=== PATIENT | male | born 1980 | race African-American/Black ===

== ENCOUNTER 2018-11-27 12:14 | Emergency (ER) | payer MEDICAID ==
[~2018-11-27] VITALS: Ht 175.3 cm; Wt 86.2 kg
[~2018-11-27 12:14] MED LIST: CITA10TA11 PO
--- NOTE | 2018-11-27 12:40 | NUR ---
PT CALLED BACK FOR TRIAGE. PT USING SWEAR WORDS AND YELLING AND SCREAMING. PT LEFT IN LOBBY AND SECURITY CALLED.
--- NOTE | 2018-11-27 12:45 | NUR ---
SECURITY IN LOBBY TO ESCORT PT TO BED 4 FOR TRIAGE AND PT CONTINUES TO YELL AND USE SWEAR WORDS, STATING HE DOES NOT WANT TO BE HERE, WHY DID THEY BRING HIM HERE, GET HIM THE FUCK OUT OF HERE. SECURITY ESCORTED PT BACK OUT TO LOBBY AND OUTSIDE.
--- NOTE | 2018-11-27 12:47 | NUR ---
PATIENT LEFT WITHOUT BEING SEEN BY DR. TOBAR. NO FURTHER CARE PROVIDED FOR PATIENT.
[2018-11-27 13:10] VITALS: BP 97/58
--- NOTE | 2018-11-27 13:10 | NUR ---
PATIENT NOW EXPRESSING WISH TO BE SEEN BY MD. TRIAGED AT THIS TIME, VSS.
--- NOTE | 2018-11-27 13:15 | NUR ---
PATIENT NOW YELLING AT ADMITTING STAFF, CONTACTING [facility] AT THIS TIME.
--- NOTE | 2018-11-27 13:27 | NUR ---
TRINIDAD CASTILLO NOW ARRIVED. IN LOBBY SPEAKING TO PATIENT.
--- NOTE | 2018-11-27 13:58 | NUR ---
PT AMBULATED TO ER BED 07
--- NOTE | 2018-11-27 14:50 | NUR ---
PT C/O L SHOULDER PAIN, PT REFUSES TO DISCLOSE INFORMATION HOW EVENT HAPPENED. PT STATES PAIN IS 7/10 AT THIS TIME. UNABLE TO OBTAINED PAST MEDICAL HX; PT IS A POOR HISTORIAN. NOTED VERY SLEEPY. VSS.
[2018-11-27 15:51] LABS: BASOPHILS % (AUTO) 0.6 % (0.0-2.0); EOSINOPHILS # (AUTO) 0.2 K/uL (0-0.4); EOSINOPHILS % (AUTO) 4.2 % (0.0-4.0); HEMATOCRIT 38.5 % (36-52); HEMOGLOBIN 13.1 g/dL (12.0-18.0); LYMPHOCYTES # (AUTO) 1.6 K/uL (2.0-11.5); LYMPHOCYTES % (AUTO) 33.1 % (20.5-51.1); MEAN CORPUSCULAR HEMOGLOBIN 34 pg (27-31); MEAN CORPUSCULAR HGB CONC 34 g/dL (33-37); MEAN CORPUSCULAR VOLUME 98.8 fL (80-94); MONOCYTES # (AUTO) 0.7 K/uL (0.8-1.0); MONOCYTES % (AUTO) 13.4 % (1.7-9.3); NEUTROPHILS # (AUTO) 2.4 K/uL (1.8-7.7); NEUTROPHILS % (AUTO) 48.7 % (42.2-75.2); PLATELET COUNT (AUTO) 270 K/uL (140-450); RED BLOOD CELL COUNT(AUTO) 3.89 MIL/uL (4.20-6.10); RED CELL DISTRIBUTION WIDTH 13.2 % (11.6-13.7); WHITE BLOOD COUNT (AUTO) 4.9 K/uL (4.8-10.8)
[2018-11-27 16:13] LABS: CARBON DIOXIDE 29.5 mmol/L (21-32); CHLORIDE 106 mmol/L (98-107); CREATININE 0.9 mg/dL (0.7-1.3); GFR ARICAN-AMERICAN 122 mL/min (>90); GLUCOSE 96 mg/dL (74-106); POTASSIUM 3.5 mmol/L (3.5-5.1); SODIUM SERUM 144 mmol/L (136-145); UREA NITROGEN, BLOOD 8 mg/dL (7-18)
[2018-11-27 16:27] LABS: ALBUMIN 3.5 g/dL (3.4-5.0); ASPARTATE AMINOTRANSFERASE 38 U/L (15-37); MAGNESIUM 2.1 mg/dL (1.8-2.4); TOTAL BILIRUBIN 0.2 mg/dL (0.0-1.0)
--- NOTE | 2018-11-27 17:46 | NUR ---
UDS COLLECTED; TAKEN TO LAB BY MANUFACTURER REPRESENTATIVE.
[2018-11-27 18:11] LABS: BARBITURATE, URINE NEG. ng/ml (NEG <=200); BENZODIAZEPINE, URINE POS. ng/mL (NEG <=200); CANNABINOID, URINE POS. ng/mL (NEG <=50); COCAINE, URINE NEG. ng/mL (NEG <=300); OPIATE, URINE NEG. ng/mL (NEG <=2000); PHENCYCLIDINE SCREEN,URINE NEG. ng/mL (NEG <=25)
--- NOTE | 2018-11-27 18:43 | NUR ---
O2 sat 92-93%;Oxygen applied at 2 L per minute via NC. 02 saturation 98% by pulse oximetry.
--- NOTE | 2018-11-27 18:54 | NUR ---
Patient resting comfortably in bed. Vital Signs within normal limits. Respirations even and unlabored. No new orders at this time.
--- NOTE | 2018-11-27 19:10 | NUR ---
Report given to MARISSA Roth. Transfer of care at this time.
--- NOTE | 2018-11-27 19:12 | NUR ---
REPORT RECEIVED FROM MARISSA GABRIEL. TRANSFER OF CARE AT THIS TIME.
[2018-11-27 19:20] VITALS: BP 117/87
--- NOTE | 2018-11-27 19:20 | NUR ---
Patient discharged with v/s stable. Written and verbal after care instructions given and explained. Patient verbalized understanding. Ambulatory with steady gait. All questions addressed prior to discharge. Advised to follow up with PMD.
== END 2018-11-27 19:20 | disposition home or self-care (01) ==
LOC: MED 12:14
DX: F10.129 Alcohol abuse with intoxication, unspecified (principal); G89.29 Other chronic pain; M54.5 Low back pain; M25.512 Pain in left shoulder; F12.10 Cannabis abuse, uncomplicated; Z88.8 Allergy status to other drugs, medicaments and biological substances; Z79.899 Other long term (current) drug therapy
CPT/HCPCS: 36415; 80053; 80305; 82550; 82553; 83735; 85025; 99283; G0482

== ENCOUNTER 2018-11-28 01:21 | Emergency (ER) | payer MEDICAID ==
[~2018-11-28] VITALS: Ht 182.9 cm; Wt 90.7 kg
[2018-11-28 01:26] VITALS: BP 110/65
--- NOTE | 2018-11-28 01:28 | NUR ---
TO LOBBY A/W BED AMBULATORY
--- NOTE | 2018-11-28 01:42 | NUR ---
TO BED # 01 AMBULATORY
--- NOTE | 2018-11-28 01:45 | NUR ---
38 YO MALES COMES TO ER FOR C/O GEN WEAKNESS. +3 PERRL, DENIES DIZZINESS. PT STATES HE DRANK 5-10 BEERS THIS EVENING. PT DENIES MED HX. PT POOR HISTORIAN. PALPABLE PULSES TO EXTREMITIES. LUNGS CLEAR EVEN UNLABORED BILATERALLY. SKIN WARM DRY PINK, INTACT. GURNEY IN LOCKED IN LOWEST POSITION. PMH: DENIES AX: IBUPROFEN
--- NOTE | 2018-11-28 02:41 | NUR ---
Dr. Koroma examining patient.
[2018-11-28 03:00] VITALS: BP 105/6
--- NOTE | 2018-11-28 04:42 | NUR ---
Patient discharged with v/s stable. Written and verbal after care instructions given and explained. Ambulatory with steady gait. All questions addressed prior to discharge. Advised to follow up with PMD. Homeless packet given to pt. pt refused to sign d/c instructions, and homeless packet left @ bedside.
== END 2018-11-28 04:42 | disposition home or self-care (01) ==
LOC: MED 01:21
DX: R53.1 Weakness (principal); Z88.8 Allergy status to other drugs, medicaments and biological substances; Z79.899 Other long term (current) drug therapy
CPT/HCPCS: 99281

== ENCOUNTER 2019-03-11 21:46 | Emergency (ER) | payer MEDICAID ==
[~2019-03-11] VITALS: Ht 167.6 cm; Wt 72.6 kg
[2019-03-11 21:58] VITALS: BP 137/80
--- NOTE | 2019-03-11 22:28 | NUR ---
PT BROUGHT TO BED 12 VIA [facility]
--- NOTE | 2019-03-11 22:48 | NUR ---
38 Y/O C/O FACIAL PAIN, PT ADMITTED TO EMS OF ALCOHOL INTAKE, PER EMS, PT SMELLS OF MARIJUANA. PT SLURRED SPEECH, NO OBVIOUS INJURY NOTED TO FACE. RIGHT SIDE OF FACE IS SWOLLEN. PATIENT IS A/O X4 AND IS ABLE TO FOLLOW SOME COMMANDS. BREATHING IS UNLABORED AND SYMMETRICAL. [facility] 15. URINE OUTPUT IS 900 ML. PATIENT IS SLEEPING AT THIS TIME. ERMD MADE AWARE OF STATUS. SIDE RAILSX2. PMH:UNKNOWN
--- NOTE | 2019-03-12 00:02 | NUR ---
PATIENT IS IN NO DISTRESS AT THIS TIME AND IS SLEEPING. WILL CONTINUE TO MONITOR.
--- NOTE | 2019-03-12 02:04 | NUR ---
Patient is sleeping and in no distress at this time.
[2019-03-12 03:07] VITALS: BP 125/87
== END 2019-03-12 03:07 | disposition home or self-care (01) ==
LOC: MED 21:46
DX: R51 Headache (principal); F10.129 Alcohol abuse with intoxication, unspecified; R22.0 Localized swelling, mass and lump, head; Z79.899 Other long term (current) drug therapy; Z88.8 Allergy status to other drugs, medicaments and biological substances
CPT/HCPCS: 99283